=== PATIENT | male | born 1995 | race Caucasian/White ===

== ENCOUNTER 2018-05-25 20:42 | Emergency (ER) | payer SELFPAY ==
--- NOTE | 2018-05-25 23:41 | ER Document Report ---
ED General - General Chief Complaint: Psych Problem Stated Complaint: PSYCH PROBLEM Time Seen by Provider: 05/25/18 22:34 Notes: Patient is a 22-year old male with a past medical history of alcohol abuse, prior diagnosis of schizophrenia although the patient does not really follow with mental health provider take any medications for this potential diagnosis who presents with his mother for concern of erratic behavior, threats of suicide , labile mood. Patient apparently for the past 2 weeks has been "on a downward spiral". The patient reports that he has been fixated on committing suicide over that period of time with varying plans mostly focused on use of a firearm or overdose on "sleeping medications. The patient reports that he has attempted suicide in the past, currently does feel suicidal. Nothing seems to improve or worsen his symptoms although his mother states that when he is drinking his behaviors are worse. Mother reports that he has gotten to this point in the past and required involuntary commitment. [facility] did assess the patient earlier today, states that they were trying to get him into an inpatient facility but they would be unable to do so until Monday. Family did not feel comfortable waiting this long given the patient's increasingly erratic and often violent behaviors prompting them to come to the emergency department. The patient does complain of chronic upper abdominal discomfort worsened by drinking alcohol. He denies any current abdominal pain. Not the main reason for visit today. Denies melena, hematochezia or hematemesis. Patient states this feels similar to when he has had stomach upset from excessive drinking in the past. TRAVEL OUTSIDE OF THE [place] IN LAST 30 DAYS: No - Related Data Allergies/Adverse Reactions: No Known Allergies Allergy (Unverified 02/04/16 06:19) Past Medical History - General Information source: Patient - Social History Smoking Status: Current Every Day Smoker Frequency of alcohol use: Heavy Drug Abuse: None Lives with: Family Family History: Reviewed & Not Pertinent Patient has suicidal ideation: Yes Patient has homicidal ideation: No Renal/ Medical History: Denies: Hx Peritoneal Dialysis Psychiatric Medical History: Reports: Hx Depression - anxiety Review of Systems - Review of Systems Notes: Constitutional: Negative for fever. HENT: Negative for sore throat. Eyes: Negative for visual changes. Cardiovascular: Negative for chest pain. Respiratory: Negative for shortness of breath. Gastrointestinal: Positive for abdominal pain and nausea Genitourinary: Negative for dysuria. Musculoskeletal: Negative for back pain. Skin: Negative for rash. Neurological: Negative for headaches, weakness or numbness. 10 point ROS negative except as marked above and in HPI. Physical Exam - Vital signs Vitals: Temp Pulse Resp BP Pulse Ox 98.3 F 62 15 152/83 H 98 05/25/18 20:49 05/25/18 20:49 05/25/18 20:49 05/25/18 20:49 05/25/18 20:49 Notes: PHYSICAL EXAMINATION: GENERAL: Well-appearing, well-nourished and in no acute distress. HEAD: Atraumatic, normocephalic. EYES: Pupils equal round and reactive to light, extraocular movements intact, sclera anicteric, conjunctiva are normal. ENT: nares patent, oropharynx clear without exudates. Moist mucous membranes. NECK: Normal range of motion, supple without lymphadenopathy LUNGS: Breath sounds clear to auscultation bilaterally and equal. No wheezes rales or rhonchi. HEART: Regular rate and rhythm without murmurs ABDOMEN: Soft, nontender, normoactive bowel sounds. No guarding, no rebound. No masses appreciated. EXTREMITIES: Normal range of motion, no pitting or edema. No cyanosis. NEUROLOGICAL: No focal neurological deficits. Moves all extremities spontaneously and on command. PSYCH: Normal mood, normal affect. SKIN: Warm, Dry, normal turgor, no rashes or lesions noted. Course - Re-evaluation Re-evalutation: 05/25/18 23:40 Patient presents with suicidal ideation, multiple plans, self-injurious behavior , depression, lack of control with alcohol consumption. Current risk to himself and others. He is calm and cooperative the time of my assessment although family reports multiple behaviors at home that demonstrate highly labile attitudes and behaviors. He has been placed on an involuntary commitment. Medical screening labs are pending. The patient did complain of some intermittent abdominal cramping mostly in the upper abdomen in association with drinking which sounds most consistent with alcoholic gastritis. Labs are pending but at this point I have very low clinical suspicion for any acute abdominal pathology he is he currently denies any abdominal pain, abdominal exam is benign. 05/26/18 03:12 Labs unremarkable without evidence of transaminitis. Patient is sleeping soundly, low clinical suspicion for any acute intra-abdominal pathology. Will begin patient on famotidine. Patient is otherwise cleared for evaluation and disposition per behavioral health services in the morning. - Vital Signs Vital signs: Temp Pulse Resp BP Pulse Ox 98.3 F 62 15 152/83 H 98 05/25/18 20:49 05/25/18 20:49 05/25/18 20:49 05/25/18 20:49 05/25/18 20:49 - Laboratory Result Diagrams: 05/25/18 23:50 05/25/18 23:50 Laboratory results interpreted by me: 05/25/18 05/25/18 23:50 23:50 MCH 33.5 H Salicylates < 1.0 L Acetaminophen < 10 L Discharge - Discharge Clinical Impression: Anxiety, Suicidal ideation, Abdominal discomfort, epigastric Depressed Qualifiers: Depression Type: unspecified Qualified Code(s): F32.9 - Major depressive disorder, single episode, unspecified
[2018-05-26 00:29] LABS: ABSOLUTE BASOPHILS # (AUTO) 0.1 10^3/uL (0.0-0.2); ABSOLUTE EOSINOPHILS # (AUTO) 0.1 10^3/uL (0.0-0.6); ABSOLUTE LYMPHOCYTES (AUTO) 2.3 10^3/uL (0.5-4.7); ABSOLUTE MONOCYTES (AUTO) 0.6 10^3/uL (0.1-1.4); ABSOLUTE NEUT (AUTO) 4.4 10^3/uL (1.7-8.2); BASOPHILS % (AUTO) 0.9 % (0-2); HEMATOCRIT 44.5 % (37.9-51.0); HEMOGLOBIN 15.8 g/dL (13.5-17.0); LYMPHOCYTES % (AUTO) 30.6 % (13-45); MEAN CORPUSCULAR HEMOGLOBIN 33.5 pg (27.0-33.4); MEAN CORPUSCULAR HGB CONC 35.6 g/dL (32.0-36.0); MEAN CORPUSCULAR VOLUME 94 fl (80-97); MONOCYTES % (AUTO) 8.4 % (3-13); PLATELET COUNT 295 10^3/uL (150-450); RED BLOOD COUNT 4.73 10^6/uL (4.35-5.55); RED CELL DISTRIBUTION WIDTH 13.2 % (11.5-14.0); SEGMENTED NEUTROPHILS % (AUTO) 59.1 % (42-78); TOTAL CELLS COUNTED % (AUTO) 100 %; WHITE BLOOD COUNT 7.5 10^3/uL (4.0-10.5)
[2018-05-26 00:44] LABS: ALANINE AMINOTRANSFERASE 22 U/L (21-72); ALBUMIN 4.7 g/dL (3.5-5.0); ALCOHOL 22 mg/dL (NONE DETECTED); ALKALINE PHOSPHATASE 61 U/L (38-126); ANION GAP 16 (5-19); ASPARTATE AMINO TRANSFERASE 33 U/L (17-59); BILIRUBIN,DIRECT 0.2 mg/dL (0.0-0.4); BILIRUBIN,TOTAL 0.8 mg/dL (0.2-1.3); BLOOD UREA NITROGEN 8 mg/dL (7-20); CALCIUM 9.6 mg/dL (8.4-10.2); CARBON DIOXIDE 24 mmol/L (22-30); CHLORIDE 100 mmol/L (98-107); GLUCOSE 76 mg/dL (75-110); POTASSIUM 4.1 mmol/L (3.6-5.0); SODIUM 140.3 mmol/L (137-145); TOTAL PROTEIN 7.4 g/dL (6.3-8.2)
[2018-05-26 00:47] LABS: ACETAMINOPHEN < 10 ug/mL (10-30); SALICYLATE < 1.0 mg/dL (2.0-20.0)
[2018-05-26 01:07] LABS: APPEARANCE,URINE CLEAR; BILIRUBIN,URINE NEGATIVE (NEGATIVE); COLOR,URINE YELLOW; GLUCOSE, URINE NEGATIVE (NEGATIVE); KETONES,URINE NEGATIVE (NEGATIVE); LEUKOCYTE ESTERASE,URINE NEGATIVE (NEGATIVE); NITRITE,URINE NEGATIVE (NEGATIVE); PROTEIN,URINE NEGATIVE (NEGATIVE); URINE SPECIFIC GRAVITY 1.018; UROBILINOGEN,URINE NEGATIVE mg/dL (<2.0)
[2018-05-26 01:27] LABS: URINE AMPHETAMINES SCREEN NEGATIVE; URINE BARBITURATES SCREEN NEGATIVE; URINE BENZODIAZEPINES SCREEN NEGATIVE; URINE COCAINE SCREEN NEGATIVE; URINE MARIJUANA (THC) SCREEN UNCONFIRMED POSITIVE; URINE METHADONE SCREEN NEGATIVE; URINE PHENCYCLIDINE SCREEN NEGATIVE
[2018-05-26] MEDS ORDERED: FAMOTIDINE 20 MG TABLET PO ONE ×2 (02:38→06:15)
--- NOTE | 2018-05-26 10:21 | EKG REPORT ---
SEVERITY:- NORMAL ECG - SINUS RHYTHM : Confirmed by: Kayleigh Luther MD 26-May-2018 10:20:58
--- NOTE | 2018-05-26 11:29 | ER Document Report ---
Doctor's Note Notes: 05/26/18 11:27 Rounds: Chart reviewed and patient interviewed. Patient is cooperative and carries on a normal conversation. Says he may be suicidal. History of alcohol abuse and was drinking last evening. Also history of schizophrenia. Brought in because of erratic behavior. Suicidal ideation. Patient had transient abdominal pain during the night hours, but no longer has that pain. Lab studies were essentially normal except for being positive for marijuana and a blood alcohol of 22. Vital signs are all normal. Patient appears to be medically stable for transfer or discharge. Ayah Matthews MD
[2018-05-26] MEDS: BUSPIRONE HCL 10 MG TABLET PO SCH ×2 (12:12→18:44)
[2018-05-26] MEDS: VENLAFAXINE HCL 37.5 MG CAP.SR.24H PO SCH ×2 (12:16→18:44)
--- NOTE | 2018-05-26 13:08 | PSYCHOLOGICAL NOTE ---
Psych Note - Psych Note Date seen by psych provider: 05/26/18 Time seen by psych provider: 08:35 Psych Note: Reason for consult: suicidal ideation Consent for permissions: patient's mother is bed side, Severe depression/suicidal/anxiety. Had gun 2 days ago and was going to kill himself Had razor blade on him prior to arrival. Also abd pain with nausea and vomiting. Saw [facility] this am. Patient states that about two weeks ago he was at home playing with a firearm and it "went off by accident" and scared him. Patient states that on that particular day, he was not trying to harm himself but was just handling the weapon and it discharged. Patient states that he "took off" to [place] to clear his head, quitting his job and not letting anyone know where he could be located. Patient disclosed that he was staying with a friend up until a few days ago and then returned home to [place], [place]. Patient states that he is currently homeless as he is unable to stay with his parents due to him being in non-compliance with his medicine and his excessive drinking. Patient states that he desires sobriety but cannot quit on his own. Patient also disclosed that he wanted to try to stop drinking as it was affecting his health (liver). This Clinician provided information on the [facility] which assists patients who do not have health insurance. Patient mentioned that he had two failed attempts in detox centers in 2016 and continues to drink on a daily basis. Patient stated that he stopped taking his medications on purpose once he was released from detox. Patient disclosed that he has been suffering from anxiety and depression for the last 10 years and has only been to detox centers. Patient says that the desire to kill himself "comes and goes". He sometimes thinks that he will take sleep medications and alcohol but does not have a timeline. Patient states that since he is homeless, he no longer has access to his parents' firearms and has no desire to kill anyone. Patient also disclosed that his family is working with [facility] to locate an inpatient hospital for him. Patient's mother is bed side and says that the patient told her that he was going to kill himself yesterday and that is why she brought him to the emergency room. Mom states that son " has been hopeless for a few weeks and it seems to be getting worse". Patient's mom did admit that son is not allowed to stay with them because of his unpredictable behavior and non-compliance with medications. Patient's mother would like to see him in an inpatient facility and for him to get help with his drinking problem. Patient is alert and oriented to person, place time and circumstance. Eye Contact is well maintained and client easily engages Clinician. Mood is euthymic. Patient is forthcoming with information and readily acknowledges that he has a drinking problem and interested in sobriety. Patient endorses passive suicidal ideation and denies homicidal ideation. Patient's thought processes are organized and linear. Conversational speech was within normal rate, tone and prosody. Intellectual abilities appear to be within average range. Attention and concentration are good. Insight, judgment, impulse control are fair. Medication recommendations per [facility]'s contracted psychiatrist Dr. Johnathan HENRIQUEZ are as follows: Effexor 37.5 mg twice daily Buspar 10mg twice daily Diagnosis 295.90 (F20.9) Schizophrenia per patient report Impression/Plan: Patient is recommended to continue IVC. Behavioral Healthcare team is actively searching for placement in an inpatient facility. Patient disclosed that he has passive suicidal ideation with alternating plans but does not have access to any means. Patient had access to a gun two days ago and patient's mom states that he took a razor blade from him before coming to the hospital. Patient states that he dougherty himself when he becomes angry and has been doing this for the last [address] Mccullough was consulted on the care and management of this patient; attending physician is in agreement with recommendations and disposition.
[2018-05-27] MEDS: VENLAFAXINE HCL 37.5 MG CAP.SR.24H PO SCH ×2 (09:11→19:24)
[2018-05-27] MEDS: BUSPIRONE HCL 10 MG TABLET PO SCH ×2 (09:11→19:24)
--- NOTE | 2018-05-27 10:08 | ER Document Report ---
Doctor's Note Notes: 05/27/18 10:07 Rounds: Chart reviewed. Patient sleeping so I did not interview him at this time. Patient being evaluated and treated for suicidal ideation. Has been started on Effexor and BuSpar. Vital signs of all been essentially normal. Lab studies have also been essentially normal. Patient appears to be medically stable for transfer or discharge. Ayah Matthews MD
--- NOTE | 2018-05-27 13:21 | PSYCHOLOGICAL NOTE ---
Psych Note - Psych Note Psych Note: Reason for consult: suicidal ideation, re-evaluation Clinician conducted check in on patient Clinician notes that patient is awake, alert and easily engaged. Patient states that he still feels suicidal but could not articulate a plan or timeline. Patient discloses that he struggles with being happy, relationships, jobs, etc. Patient is interested in sobriety but says it is a constant struggle for him. No medication recommendations at this time Diagnosis 295.90 (F20.9) Schizophrenia per patient report Impression/Plan: Patient is recommended to continue IVC. Behavioral Healthcare team is actively searching for placement in an inpatient facility. Patient disclosed that he has passive suicidal ideation with alternating plans but does not have access to any means. Patient had access to a gun two days ago and patient's mom states that he took a razor blade from him before coming to the hospital. Patient states that he dougherty himself when he becomes angry and has been doing this for the last [address] Mccullough was consulted on the care and management of this patient; attending physician is in agreement with recommendations and disposition.
[2018-05-27] MEDS ORDERED: NICOTINE 14 MG/24 HR PATCH.TD24 TD ONE (19:09)
[2018-05-28] MEDS: BUSPIRONE HCL 10 MG TABLET PO SCH ×2 (09:28→18:25)
[2018-05-28] MEDS: VENLAFAXINE HCL 37.5 MG CAP.SR.24H PO SCH ×2 (09:28→18:25)
--- NOTE | 2018-05-28 10:54 | ER Document Report ---
Doctor's Note Notes: 05/28/18 18:33 This 22-year-old man presented for evaluation of some harmful thoughts. He does have a history of mental illness in the past and had been homeless as well as abusing substances withou t anywhere to go. He has had several days of medications including BuSpar, Effexor. Currently this patient is planning to undergo discharge in the care of his father as he no longer is suicidal, he is tolerating his medications well and feeling okay. I will provide him with prescriptions for his BuSpar as well as Effexor. He will be discharged in the care of his father. Discharge - Discharge Clinical Impression: Anxiety, Suicidal ideation, Abdominal discomfort, epigastric, Alcohol abuse Depressed Qualifiers: Depression Type: unspecified Qualified Code(s): F32.9 - Major depressive disorder, single episode, unspecified Condition: Stable Disposition: HOME, SELF-CARE Additional Instructions: You have been evaluated by both medical and behavioral health teams have been deemed appropriate for discharge. You are recommended to follow-up with [facility] to receive both substance abuse and mental health services. You are recommended to receive one-on-one counseling in the form of CBT or DBT to better learn your triggers, interpreting your environment, and coping skills. You are also recommended to receive neuropsychological testing. you have been provided an application for the [employer] to assist with obtaining sober living and a local resource list of area providers to include mobile crisis. CHRONIC ALCOHOLISM and ALCOHOL ABUSE: Your evaluation reveals evidence of chronic alcoholism, an addiction to alcohol. The tendency to alcoholism may be inherited. Chronic use of alcohol weakens muscles, causes fatty deposits in the liver , damages the stomach, makes you more prone to infections, and can cause defects in unborn children. In the long run, brain atrophy and cirrhosis of the liver result. You are also at greater risk for certain types of cancer, such as cancer of the mouth, throat, stomach, and liver. Counselling services are available to help you. In-hospital treatment programs often help. Support groups such as Alcoholics Anonymous can be very useful in beating this addiction. Your physician can make a referral for you. As alcoholics often are prone to other addictions, you should discuss your use of any other medications with the doctor. ALCOHOL WITHDRAWAL: Your symptoms are caused by alcohol withdrawal. After a period of frequent drinking, the brain and body are changed by the alcohol. When you quit or reduce your drinking, the nervous system becomes unstable. Withdrawal symptoms can start a few hours after your last drink, but sometimes don't begin until a couple of days later. Symptoms can include shakiness, sweating, insomnia, nausea , vomiting, fearfulness, hallucinations, and seizures. In addition to the acute effects of alcohol withdrawal, we often have to deal with the medical effects of alcoholism. These problems often include dehydration, stomach irritation, intestinal bleeding, low blood sugar, liver disease, and pancreas inflammation. Treatment for alcohol withdrawal includes mild sedatives, vitamins, and fluids. You need to be with someone who can help if symptoms become severe. Many patients can withdraw at home. Admission to the hospital or a detox facility may be necessary if withdrawal symptoms are severe and uncontrollable. Abstaining from alcohol is the only effective long-term treatment. If you start drinking again, you will not be able to control yourself after the first drink. Treatment programs are available. In addition, many alcoholics benefit from Alcoholics Anonymous or other support groups available through your counselor or faith rotary drill operator. [facility] and [facility] are support groups for friends and family members of an alcoholic. Go to the emergency room if you develop persistent vomiting, severe abdominal pain, fever, shortness of breath, hallucinations, uncontrollable tremors, or seizures. DEPRESSION: Your evaluation reveals that you have mental depression. While symptoms may be vague, they often include disturbance of sleep, fatigue, loss of appetite , and general loss of interest in life. While depression may be a side effect of drugs, or a reaction to a major change in your life, many cases have no known cause. If depression is acute, and related to a major loss in your life, you can expect it to clear completely with time. If you have been depressed a long time , are prone to repeated bouts of depression or low mood, or have been thinking of suicide, get help. Depression can be treated with anti-depressant medication and counselling. Long-term depression will often take a few weeks to clear, even with appropriate medication. Follow-up care is important. SUICIDAL IDEATION: Suicidal ideation is a common medical term for thoughts about suicide, which may be as detailed as a formulated plan, without the suicidal act itself. Although most people who undergo suicidal ideation do not commit suicide, some go on to make suicide attempts. The range of suicidal ideation varies greatly from fleeting to detailed planning, role playing, and unsuccessful attempts. While thoughts about suicide are common, most people do not carry out serious actions to commit suicide. Based upon your evaluation and discussion with you, we do not believe you are currently at risk to act upon your thoughts of suicide. You have agreed to return to the Emergency Department, at any time , if you feel inclined to act upon your suicidal thoughts. FOLLOW-UP CARE: If you experience worsening or a significant change in your symptoms, notify the physician immediately or return to the Emergency Department at any time for re-evaluation. Prescriptions: Buspirone HCl [Buspar 10 mg Tablet] 10 mg PO BID #40 tab Venlafaxine HCl ER [Effexor Xr 37.5 mg Cap.sr] 37.5 mg PO BID 20 Days #40 cap.[id number].[id number] Referrals: [facility] [Outside] - Follow up in 3-5 days
--- NOTE | 2018-05-28 15:47 | PSYCHOLOGICAL NOTE ---
Psych Note - Psych Note Date seen by psych provider: 05/28/18 Time seen by psych provider: 12:15 Psych Note: Reason for consult: suicidal ideation, re-evaluation Clinician conducted check in on patient Patient sat up and openly engaged with clinician. He reports that he has chronic passive suicidal ideation that comes and goes. He reports that for the most part he has been feeling "even keeled" while staying here at [facility]. He continued to discuss while staying with a friend in [place] he was messing with a firearm and became scared so he had to leave the home. He states that he came back here because he knew he needed help. He reports that he knows he has a drinking problem and when he drinks he has really bad mood swings. He continued to discuss that he feels he has an addictive personality and at times has difficulties being around people. He reports that sometimes he just wakes up and says he needs to leave (mainly because he feels things are going bad and wants to "escape"). He disclosed that he did this about 3 weeks ago and went to [place] to stay with a friend; however, because he did not communicate this with his parents and took their car they contacted law enforcement. He reports that when he is angry he dougherty himself (clinician observes a few stringer on his hand and arm that appear to be healing burn wounds). Patient disclosed that he used to work for [employer] before he left 3 weeks ago to [place]. He states that he will have to look for a new job. When asked if he has somewhere to live he states it is currently "up in the air" as he is unsure if he can live with his parents again. Mood is euthymic with congruent affect. Clinician spoke with patient's mother and father Patient's mother discloses concern that the patient scares her and needs to go somewhere for sober living. She continued to disclose that she has too many people living in their home and that she needs to make sure they are safe (ie grandchild, patient's grandmother). She reports concern the patient has no where to live and with the weather, the patient will not have a safe place to stay outside. She continued to disclose that the patient has been having difficulties since high school, where he would refuse to engage with peers. She reports the patient is highly intelligent and was in the top 10 of his graduating class "without ever opening a book." She disclosed the patient doesn' t like crowds and can't imagine going to college and because of his mental health he uses alcohol to self medicated. She continued to disclose that he is now unable to hold a job and when be becomes angry, he gets into rages and self harms and will make comments about killing himself or others. She continued to disclose the patient needs to be able to go somewhere that he can learn coping skills where he would have no access to alcohol. Medication recommendations per [facility]'s contracted psychiatrist Dr. Johnathan HENRIQUEZ are as follows: Effexor 37.5 mg twice daily Buspar 10mg twice daily Diagnosis 291.9 (F10.99) Unspecified Alcohol use disorder R/O bipolar; unspecified R/O autism Impression/Plan: Patient is recommended for rescind of IVC and is cleared from acute psychiatric services. Patient disclosed chronic passive suicidal ideation ie no plans, means or intent. He demonstrates forward thinking when discussing his treatment plan and needing to get a new job. Patient states that he dougherty himself when he becomes angry and has been doing this for the last 7-8 years. Patient is recommended to follow up with outpatient substance abuse and mental health treatment with one on one therapeutic services and medication management. Patient is also recommended to obtain neuropsychological testing. Patient has been provided a local resource list of providers and the application of the [facility]. Dr. Mccullough was consulted on the care and management of this patient; attending physician is in agreement with recommendations and disposition.
[2018-05-28 18:44] VITALS: BP 138/30
== END 2018-05-28 18:44 | disposition home or self-care (01) ==
LOC: ER 20:42
DX: F41.9 Anxiety disorder, unspecified (principal); R10.9 Unspecified abdominal pain; F10.10 Alcohol abuse, uncomplicated; F32.9 Major depressive disorder, single episode, unspecified
CPT/HCPCS: 93005; 99285; 36415; 80307 ×4; 85025; 80053; 81001; 93010; J3490 ×3